=== PATIENT | female | born 1970 | race African-American/Black ===

== ENCOUNTER → 2016-10-03 | Outpatient (CLI) | payer BC ==
[~2016-10-03] MED LIST: ALBUTEROL17 GM INH; CHOLESTEROL PILL; HUMALOG100 U/ML SUBQ; LANTUS100 U/ML INJ; LEVAQUIN750 MG PO; LISINOPRIL PO; SYNTHROID PO; TOPROL XL PO
--- NOTE | ~2016-10-03 | TH ---
Unit #: [id number] #: [id number] Patient: JAYDEN RAMSEY [id number] [address] [place], [place] [address] [id number] O MR#: [id number] NAME: JAYDEN RAMSEY : 1970 SEX: F STUDY DATE/TIME: 10/03/2016 UNIT: [facility] ROOM: STUDY DESCRIPTION: Exercise stress test - Nuclear Attending Physician: Leidy Fofana M.D. Referring Physician: Leidy Fofana M.D. Primary Care Physician: Sebastian Villagomez Sr., M.D. CARDIOLOGY REPORT PROCEDURE PERFORMED Exercise Cardiolite stress test - Nuclear portion. PROCEDURE Using technetium 99m-labeled Cardiolite, rest and stress SPECT images were obtained. Multiple SPECT images were obtained in various views, including horizontal and vertical long axis and short axis views of the left ventricle. Images were obtained by gated SPECT method. The patient was administered 11.59 mCi of Cardiolite at rest. The patient was administered 35.7 mCi of Cardiolite at peak exercise. Total exercise time is 4 minutes and 46 seconds. On the stress images, there is a small area of mildly decreased tracer uptake activity in the anteroapical wall. The rest images show a small area of mildly decreased tracer uptake activity anteroapically. Comparing the rest and stress images, there is no obvious stress-induced ischemia noted. There is a small area of predominantly fixed defect seen anteroapically, cannot rule out soft tissue artifact. The left ventricular ejection fraction is calculated to be 56%. There is no focal wall motion abnormality seen. CONCLUSION 1. There is a small area of predominantly fixed defect seen anteroapically; cannot rule out soft tissue artifact. 2. There is no obvious stress-induced ischemia noted. 3. The left ventricular ejection fraction is calculated to be 56%. 4. There is no focal wall motion abnormality seen. 5. The left ventricular size is small. 6. It must be noted that the patient's baseline blood pressure was 155/99 mmHg, had hypertensive blood pressure response with a peak blood pressure of 210/80 mmHg. Clinical correlation is requested. Dictated by... Cristin Edwards/sandra TD: 10/03/2016 13:31 JOB #: [id number] Unit #: [id number] #: [id number] Patient: RAMSEYJAYDEN R CARDIOLOGY REPORT Page 1 of 1 X Leidy Fofana MD <ELECTRONICALLY SIGNED> 10/11/16 1429 CARDIOLOGY REPORT
--- NOTE | ~2016-10-03 | ST ---
Unit #: [id number] #: [id number] Patient: JAYDEN RAMSEY [id number] [address] [address] [id number] O MR#: [id number] NAME: JAYDEN RAMSEY. : 1970 SEX: F STUDY DATE/TIME: 10/03/2016 UNIT: [facility] ROOM: STUDY DESCRIPTION: Attending Physician: Leidy Fofana M.D. Referring Physician: Leidy Fofana M.D. Primary Care Physician: Sebastian Villagomez Sr., M.D. CARDIOLOGY REPORT EXAM EKG portion of exercise Cardiolite stress test. REASON FOR EXAMINATION Chest pain. FINDINGS Baseline EKG is sinus rhythm with a rate of 83 beats per minute, possible LVH. PROCEDURE The patient exercised on the treadmill according to Pee protocol for a total of 4 minutes and 46 seconds, achieving a work level of 6.7 METs. Resting heart rate was 83 beats per minute and maximal heart rate was 162 beats per minute representing 92% of the max predicted age heart rate. The patient's symptoms were fatigue. She denied any chest pain. Downsloping ST depression was noted in the inferolateral leads. Again, patient had no chest pain or shortness of breath. The patient was stopped due to achieving heart rate and fatigue. IMPRESSION 1. Inferolateral downsloping ST changes. 2. Fatigue. 3. No chest pain. 4. Please correlate with Cardiolite imaging. Dictated by... Yohana Millan A.P.R.N. for Leidy Fofana M.D. AM/adam TD: 10/03/2016 10:01 JOB #: [id number] Unit #: [id number] #: [id number] Patient: JAYDEN RAMSEY CARDIOLOGY REPORT Page 1 of 1 X Yohana Millan APRN CARDIOLOGY REPORT
== END | disposition home or self-care (01) ==
LOC: CNUC 07:18
DX: I10 Essential (primary) hypertension (principal); R07.9 Chest pain, unspecified; E11.9 Type 2 diabetes mellitus without complications; R53.83 Other fatigue
CPT/HCPCS: 78452; 93017; A9500

== ENCOUNTER → 2016-10-16 | Outpatient (CLI) | payer BC ==
[2016-10-16 15:42] LABS: ALBUMIN SERUM 4.2 g/dL (3.5-5.0); ALKALINE PHOSPHATASE 95 U/L (32-92); ALT (SGPT) 21 U/L (10-40); AST (SGOT) 22 U/L (10-42); BILIRUBIN,TOTAL 0.6 mg/dL (0.2-2.0); BLOOD UREA NITROGEN 13 mg/dL (9-23); BUN/CREATININE RATIO 11.81; CALCIUM SERUM 9.5 mg/dL (8.4-10.2); CARBON DIOXIDE 26 mmol/L (22-31); CHLORIDE 102 mmol/L (100-111); CHOLESTEROL 230 mg/dL (0-200); CREATININE SERUM 1.1 mg/dL (0.6-1.4); GLOM FILT RATE Estimated 70.2 mL/min (>60); GLUCOSE FASTING 305 mg/dL (70-110); HDL CHOLESTEROL 38 mg/dL (35-95); POTASSIUM 3.8 mmol/L (3.5-5.1); PROTEIN TOTAL SERUM 7.1 g/dL (6.0-8.3); SODIUM 135 mmol/L (135-145)
[2016-10-16 15:44] LABS: TRIGLYCERIDES 437 mg/dL (10-160)
[2016-10-16 17:52] LABS: LDL/HDL RATIO 4 RATIO (0-4)
== END | disposition home or self-care (01) ==
LOC: CLAB 13:55
PROVIDERS: Internal Medicine Endocrinology, Diabetes & Metabolism
DX: E11.65 Type 2 diabetes mellitus with hyperglycemia (principal); E03.9 Hypothyroidism, unspecified; Z79.4 Long term (current) use of insulin
CPT/HCPCS: 36415; 80053; 80061; 83036; 84443